=== PATIENT | female | born 1955 | race Hispanic/Latino ===

== ENCOUNTER 2019-12-16 08:33 | Outpatient (CLI) | payer BC ==
--- NOTE | 2019-12-16 10:10 | Ultrasound Report ---
LEFT DIGITAL DIAGNOSTIC MAMMOGRAM WITH CAD 12/16/2019 LEFT LIMITED BREAST ULTRASOUND INDICATION: Callback for abnormal screening mammogram TECHNIQUE: Digital left mammographic imaging was performed. Spot compression views were obtained. Li mited ultrasound was performed. This examination was interpreted with the benefit of Computer-Aided D etection (CAD) analysis. COMPARISON: Prior mammograms including 12/01/2019, , 06/18/2018 FINDINGS: Breast Density: The breasts are heterogeneously dense, which may obscure small masses. MAMMOGRAPHIC FINDINGS: Spot compression images of the left subareolar breast do show the nodular den sity to persist although slightly less prominent, measuring approximately 6 mm. ULTRASOUND FINDINGS: Targeted ultrasound evaluation was performed of the area of interest. Sonograp hic evaluation of the left subareolar breast shows a 5 mm small cyst. No solid mass or suspicious are a of shadowing noted. IMPRESSION: Benign findings. Small cyst in the left subareolar breast accounts for left subareolar ma mmographic nodular density. Follow up recommendation: Routine yearly BI-RADS Category 2: Benign. A "normal" or negative report should not discourage follow up or biopsy of a clinically significant f inding. A written summary of these findings will be mailed to the patient. The patient will be entered into a mammography reporting system which will generate a reminder letter for the patient's next appointmen t at the appropriate interval. According to the [employer], yearly mammograms are recommended starting at age 40 and continuing as long as a woman is in good health. Breast MRI is recommended for women with an brenda roximately 20-25% or greater lifetime risk of breast cancer, including women with a strong family his tory of breast or ovarian cancer and women who have been treated for Hodgkin's disease. Signer Name: Zakiya Reaves MD Signed: 12/16/2019 10:05 AM Workstation Name: [id number]
--- NOTE | 2019-12-16 11:01 | Mammography Report ---
Please see combined left breast ultrasound and diagnostic mammogram report. Signer Name: Zakiya Reaves MD Signed: 12/16/2019 10:57 AM Workstation Name: [email or web address]
== END 2019-12-16 08:34 | disposition home or self-care (01) ==
LOC: SPVWC 08:33
PROVIDERS: ATTEND Surgery
DX: N60.02 Solitary cyst of left breast (principal)

== ENCOUNTER 2020-12-06 13:46 | Outpatient (CLI) | payer MEDICARE | END 2020-12-06 13:47 | disposition home or self-care (01) | LOC: SPVWC 13:46 | PROVIDERS: ATTEND Surgery | DX: Z12.31 Encounter for screening mammogram for malignant neoplasm of breast (principal); N64.89 Other specified disorders of breast | CPT/HCPCS: 77063; 77067 ==